=== PATIENT | female | born 1995 ===

== ENCOUNTER 2021-04-17 12:02 | Emergency (ER) | payer OTHER ==
[2021-04-17] MEDS ORDERED: ACETAMINOPHEN 325 MG TAB PO ONE (13:23)
[2021-04-17] MEDS ORDERED: METOCLOPRAMIDE 10 MG/2 ML INJ IV ONE (13:23)
[2021-04-17] MEDS ORDERED: LACTATED RINGERS 1,000 ML IV ONE (13:23)
--- NOTE | 2021-04-17 13:31 | Emergency Department Report ---
ED General Adult HPI - General Chief complaint: Syncope Stated complaint: AND FELL Time Seen by Provider: 04/17/21 13:01 Source: patient, RN notes reviewed Mode of arrival: Ambulatory Limitations: No Limitations - History of Present Illness Initial comments: The patient was evaluated in the emergency department for symptoms described in the history of present illness. He/she was evaluated in the context of the global COVID-19 pandemic, which necessitated consideration that the patient might be at risk for infection with the virus that causes COVID-19. Institutional protocols and algorithms that pertain to the evaluation of patients at risk for COVID-19 are in a state of rapid change based on information released by regulatory bodies including the CDC and federal and state organizations. These policies and algorithms were followed during the patient's care in the emergency department. Please note that these policies, procedures and recommendations changed on a rapid basis. LOTTERY OFFICE MANAGER: [facility]iere LOTTERY OFFICE MANAGER The patient is a 26-year-old female, who is 3, para 2, at approximately 15 to 18 weeks gestation. She had an ultrasound last week which she reports was unremarkable. The patient presents to the ER today with a complaint of sitting down, and then feeling "hot", and "rushed to my ears", earlier on this morning, around 10:00 AM. The patient reports that she has not eaten since 8:00 PM yesterday. After this event, she felt lightheaded, and believes that she lost consciousness. She slid out of a chair, and hit her head. Prior to the event, she denies headache, neck pain, chest pain, abdominal pain, upper back pain. The patient denies travel, surgery, immobilization, leg pain or leg swelling. The patient reports that she has had issues with nausea and vomiting during this , had initially lost weight, and then subsequently gained some weight back. The patient reports a similar episode happening to her 3 years ago. She did not seek medical attention at that time. The patient has a mild heada viola, but reports that she feels like she is back to her baseline The patient does report that since falling, she feels like she cannot feel the moving as much as it typically does. -: Sudden Severity scale (0 -10): 7 Consistency: now resolved Improves with: none Worsens with: none - Related Data Previous Rx's Medication Instructions Recorded Last Taken Type Doxylamine Succinate/Vit B6 1 each PO QHS PRN #30 tablet. 04/17/21 Unknown Rx [Diclegis Dr 10-10 mg Tablet] Melanie Root [Melanie] 250 mg PO QID PRN #30 capsule 04/17/21 Unknown Rx Allergies Allergy/AdvReac Type Severity Reaction Status Date / Time Penicillins Allergy Rash Verified 04/17/21 12:19 ED Review of Systems ROS: Stated complaint: AND FELL Other details as noted in HPI Constitutional: weakness (Generalized weakness). denies: fever Eyes: denies: eye pain, eye discharge, vision change ENT: denies: throat pain, epistaxis Respiratory: denies: cough Cardiovascular: syncope. denies: chest pain, palpitations, dyspnea on exertion, orthopnea Gastrointestinal: nausea, vomiting. denies: hematemesis, melena, hematochezia Genitourinary: denies: dysuria Musculoskeletal: denies: myalgia Neurological: headache. denies: weakness Psychiatric: anxiety ED Past Medical Hx - Medications Home Medications: Home Medications Medication Instructions Recorded Confirmed Last Taken Type Doxylamine Succinate/Vit B6 1 each PO QHS PRN #30 tablet. 04/17/21 Unknown Rx [[place]ie Dr 10-10 mg Tablet] Melanie Root [Melanie] 250 mg PO QID PRN #30 capsule 04/17/21 Unknown Rx ED Physical Exam - General Limitations: No Limitations General appearance: alert, in no apparent distress - Head Head exam: Present: normocephalic, other (There is a left lateral anterior forehead contusion) - Eye Eye exam: Present: normal appearance, PERRL, EOMI, other (Visual acuity intact to finger counting, color perception, reading at a close distance). Absent: nystagmus - ENT ENT exam: Present: normal exam, normal orophraynx, mucous membranes moist, TM's normal bilaterally, normal external ear exam - Neck Neck exam: Present: normal inspection, full ROM. Absent: tenderness, meningismus - Respiratory Respiratory exam: Present: normal lung sounds bilaterally. Absent: respiratory distress, wheezes, rales, rhonchi, stridor, decreased breath sounds - Cardiovascular Cardiovascular Exam: Present: regular rate, normal rhythm, normal heart sounds. Absent: bradycardia, tachycardia, irregular rhythm, systolic murmur, diastolic murmur, rubs, gallop - GI/Abdominal GI/Abdominal exam: Present: soft. Absent: distended, tenderness, guarding, rebound, rigid, pulsatile mass - Extremities Exam Extremities exam: Present: normal inspection, full ROM, other (2+ pulses noted in the bilateral upper and lower extremities. There is no palpable cord. negative Homans sign. Muscular compartments are soft. The pelvis is stable.). Absent: pedal edema, calf tenderness - Back Exam Back exam: Present: normal inspection, full ROM. Absent: tenderness, CVA tenderness (R), CVA tenderness (L), paraspinal tenderness, vertebral tenderness - Neurological Exam Neurological exam: Present: alert, oriented X3, normal gait, other (No facial droop. Tongue midline. Extraocular movements intact bilaterally. Facial sensation intact to light touch in V1, V2, V3 distribution bilaterally. 5 and a 5 strength in 4 extremities. Sensation intact to light touch in 4 extremitie s.). Absent: motor sensory deficit - Psychiatric Psychiatric exam: Present: normal affect, normal mood - Skin Skin exam: Present: warm, dry, intact, normal color. Absent: rash ED Course Vital Signs 04/17/21 04/17/21 12:20 15:38 Temperature 98.1 F Pulse Rate 99 H Respiratory 18 Rate Blood Pressure 112/66 [Right] O2 Sat by Pulse 98 Oximetry O2 Sat by Pulse 99 Oximetry [ Digit-Finger] - Reevaluation(s) Reevaluation #1: 04/17/21 13:41 Differential diagnosis, including not limited to: Closed head injury, concussion, orthostasis, vagal event, electrolyte derangement, nausea and vomiting , hypoglycemia, now resolved, incidental Assessment and plan: 26-year-old female, who was afebrile, with reassuring vital signs, who is not currently tachycardic, tachypneic or hypoxic, who denies DVT and pulmonary embolism risk factors, who I find to be low risk by Wells criteria for pulmonary embolism (appreciate that patient is , but she is not tachycardic, tachypneic or hypoxic, there is no leg pain or leg swelling, and the event today happened while sitting down, after not eating since last night. She did report that symptoms improved after she ate something.) This is most likely orthostasis and vagal event. She has a GCS of 15, and is low risk for intracranial injury as per the [place] syncope rule EKG unremarkable. Check basic laboratory studies, and obstetrics ultrasound. The patient denies urinary symptoms. She is resting comfortably on her chair, a nd in no acute distress. Check orthostatic vital signs, give Tylenol, lactated Ringer's, and Reglan. Reassess after initial data points. Patient is advised to not drive or operate motor vehicles for the next 6 months. 04/17/21 15:38 Patient reassessed multiple times. Laboratory studies unremarkable. Obstetrics ultrasound unremarkable. Patient sitting comfortably in chair, I have reexamined her multiple times, and her examination is unchanged. No additional episodes of loss of consciousness. She remained stable and suitable for discharge with follow-up as an outpatient - Pulse Oximetry Interpretation Digit-Finger Initial Pulse Oximetry Readin O2 Sat by Pulse Oximetry: 99 Actions Taken: none ED Medical Decision Making - Lab Data Result diagrams: 04/17/21 13:35 04/17/21 13:35 Vital Signs 04/17/21 12:20 Temperature 98.1 F Pulse Rate 99 H Respiratory 18 Rate Blood Pressure 112/66 [Right] O2 Sat by Pulse 98 Oximetry Lab Results 04/17/21 04/17/21 04/17/21 Range/Units 13:35 13:35 13:35 WBC 10.4 (4.5-11.0) K/mm3 RBC 4.29 (3.65-5.03) M/mm3 Hgb 12.5 (10.1-14.3) gm/dl Hct 38.3 (30.3-42.9) % MCV 89 (79-97) fl MCH 29 (28-32) pg MCHC 33 (30-34) % RDW 13.7 (13.2-15.2) % Plt Count 207 (140-440) K/mm3 Lymph % (Auto) 15.5 (13.4-35.0) % [place] % (Auto) 4.1 (0.0-7.3) % Eos % (Auto) 0.3 (0.0-4.3) % Baso % (Auto) 0.2 (0.0-1.8) % Lymph # (Auto) 1.6 (1.2-5.4) K/mm3 [place] # (Auto) 0.4 (0.0-0.8) K/mm3 Eos # (Auto) 0.0 (0.0-0.4) K/mm3 Baso # (Auto) 0.0 (0.0-0.1) K/mm3 Seg Neutrophils % 79.9 H (40.0-70.0) % Seg Neutrophils # 8.3 H (1.8-7.7) K/mm3 PT 13.7 (12.2-14.9) Sec. INR 0.95 (0.87-1.13) Sodium 135 L (137-145) mmol/L Potassium 3.9 (3.6-5.0) mmol/L Chloride 101.7 (98-107) mmol/L Carbon Dioxide 23 (22-30) mmol/L Anion Gap 14 mmol/L BUN 8 (7-17) mg/dL Creatinine 0.4 L (0.6-1.2) mg/dL Estimated GFR > 60 ml/min BUN/Creatinine Ratio 20 % Glucose 96 (65-100) mg/dL Calcium 9.7 (8.4-10.2) mg/dL Magnesium 1.90 (1.7-2.3) mg/dL Total Bilirubin 0.30 (0.1-1.2) mg/dL AST 11 (5-40) units/L ALT 10 (7-56) units/L Alkaline Phosphatase 61 (35-129) units/L Total Creatine Kinase 45 (30-135) units/L Troponin T < 0.010 (0.00-0.029) ng/mL Total Protein 7.3 (6.3-8.2) g/dL Albumin 4.0 (3.9-5) g/dL Albumin/Globulin Ratio 1.2 % TSH (0.270-4.200) mlU/mL HCG, Quant (0-4) mIU/mL 04/17/21 04/17/21 Range/Units 13:35 13:35 WBC (4.5-11.0) K/mm3 RBC (3.65-5.03) M/mm3 Hgb (10.1-14.3) gm/dl Hct (30.3-42.9) % MCV (79-97) fl MCH (28-32) pg MCHC (30-34) % RDW (13.2-15.2) % Plt Count (140-440) K/mm3 Lymph % (Auto) (13.4-35.0) % [place] % (Auto) (0.0-7.3) % Eos % (Auto) (0.0-4.3) % Baso % (Auto) (0.0-1.8) % Lymph # (Auto) (1.2-5.4) K/mm3 [place] # (Auto) (0.0-0.8) K/mm3 Eos # (Auto) (0.0-0.4) K/mm3 Baso # (Auto) (0.0-0.1) K/mm3 Seg Neutrophils % (40.0-70.0) % Seg Neutrophils # (1.8-7.7) K/mm3 PT (12.2-14.9) Sec. INR (0.87-1.13) Sodium (137-145) mmol/L Potassium (3.6-5.0) mmol/L Chloride (98-107) mmol/L Carbon Dioxide (22-30) mmol/L Anion Gap mmol/L BUN (7-17) mg/dL Creatinine (0.6-1.2) mg/dL Estimated GFR ml/min BUN/Creatinine Ratio % Glucose (65-100) mg/dL Calcium (8.4-10.2) mg/dL Magnesium (1.7-2.3) mg/dL Total Bilirubin (0.1-1.2) mg/dL AST (5-40) units/L ALT (7-56) units/L Alkaline Phosphatase (35-129) units/L Total Creatine Kinase (30-135) units/L Troponin T (0.00-0.029) ng/mL Total Protein (6.3-8.2) g/dL Albumin (3.9-5) g/dL Albumin/Globulin Ratio % TSH 1.100 (0.270-4.200) mlU/mL HCG, Quant 48868 H (0-4) mIU/mL Vital Signs 04/17/21 04/17/21 12:20 13:43 Temperature 98.1 F Pulse Rate 99 H Respiratory 18 Rate Blood Pressure 112/66 [Right] O2 Sat by Pulse 98 Oximetry O2 Sat by Pulse 99 Oximetry [ Digit-Finger] - EKG Data -: EKG Interpreted by Fl EKG shows normal: sinus rhythm Rate: normal - EKG Data 04/17/21 13:37 The EKG is interpreted at 12: 39 Rate 81 bpm. Normal axis, normal P wave axis, normal intervals. Not a STEMI. - Radiology Data Radiology results: pending, report reviewed, image reviewed US OB >= 14 weeks Fetus INDICATION: s/p fall, cant feel baby. TECHNIQUE: Transabdominal. COMPARISON: None available. FINDINGS: There is a single intrauterine . Biparietal Diameter = 4 cm Head Circumference = 15.2 cm Abdominal Circumference = 12.7 cm Femur Length = 2.6 cm Average Ultrasound Age (AUA) = 18 weeks, 1 day(s). Heart Rate: 152 beats per minute. Estimated Weight in grams (if calculated): 224 Position: cephalic. Cervix: closed. Length in cm (if measured): 5.1 cm Placenta: The placenta is low-lying. No lifting or separation of placenta. Amniotic Fluid Volume: normal IMPRESSION: 1. No acute findings. 2. Low-lying placenta. Further attention on follow-up imaging. Signer Name: Arik Davis MD Signed: 04/17/2021 2:31 PM Workstation Name: [id number] Critical care attestation.: If time is entered above; I have spent that time in minutes in the direct care of this critically ill patient, excluding procedure time. ED Disposition Clinical Impression: History of syncope Closed head injury Qualifiers: Encounter type: initial encounter Qualified Code(s): S09.90XA - Unspecified injury of head, initial encounter Qualifiers: Weeks of gestation: 18 weeks Qualified Code(s): Z3A.18 - 18 weeks gestation of Disposition: 01 HOME / SELF CARE / HOMELESS Is pt being admited?: No Does the pt Need Aspirin: No Condition: Good Additional Instructions: Please advance diet as tolerated. Drink 4 to 6 cups of water per day during the duration of your . Make certain to eat 3-6 meals per day, and recommend that patient not drive or operate motor vehicles for the next 6 months, or until cleared to do so by a primary care doctor or javascript software engineer. Recommend follow-up with the primary care doctor or javascript software engineer for history of syncope/loss of consciousness within the next 5 days. Recommend that patient follow-up with her outpatient supervisor [employer] [facility] within the next week. Please return to the emergency room right away with new pain, worsened pain, migration of pain, projectile vomiting, change in mental status, confusion, inability tolerate liquid feeds, new, worsened or different symptoms not present on the initial emergency room evaluation patient may take the prescribed nausea medications as needed and directed. Patient may take [id number] acetaminophen/Tylenol as needed for physical pain. Patient should not resume heavy duty lifting, or strenuous physical activity or contact sports until cleared to do so by her primary care doctor. Referrals: [facility] [Provider Group] - 3-5 Days [facility] [Provider Group] - 3-5 Days [facility] [Provider Group] - 3-5 Days
[2021-04-17 13:58] LABS: INR 0.95 (0.87-1.13)
[2021-04-17 14:06] LABS: Alanine Aminotransferase 10 units/L (7-56); Blood Urea Nitrogen 8 mg/dL (7-17); Calcium 9.7 mg/dL (8.4-10.2); Hemolysis Index 2
[2021-04-17 14:14] LABS: Basophils % (Auto) 0.2 % (0.0-1.8); Eosinophils % (Auto) 0.3 % (0.0-4.3); Hematocrit 38.3 % (30.3-42.9); Hemoglobin 12.5 gm/dl (10.1-14.3); Lymphocytes # (Auto) 1.6 K/mm3 (1.2-5.4); Lymphocytes % (Auto) 15.5 % (13.4-35.0); Mean Corpuscular HGB Conc 33 % (30-34); Mean Corpuscular Volume 89 fl (79-97); Monocytes # (Auto) 0.4 K/mm3 (0.0-0.8); Monocytes % (Auto) 4.1 % (0.0-7.3); Platelet Count 207 K/mm3 (140-440); Red Blood Count 4.29 M/mm3 (3.65-5.03); Red Cell Distribution Width 13.7 % (13.2-15.2)
[2021-04-17 14:28] LABS: BUN/Creatinine Ratio 20
--- NOTE | 2021-04-17 14:46 | Electrocardiograph Report ---
[facility] Test Date: 2021-04-17 Test Time: 12:39:52 Pat Name: TRUNG HIGGINBOTHAM Department: Room: Gender: F Cardiac/Vascular Sonographer: CLYDE : 1995 Requested By: ZACHARY MARTÍNEZ Order Number: [id number] Reading MD: Marshall Carr Measurements Intervals [place] Rate: 81 P: 48 DE: 142 QRS: 12 QRSD: 76 T: 19 QT: 350 QTc: 406 Interpretive Statements Sinus rhythm No previous ECG available for comparison Electronically Signed On 04-17-2021 14:46:33 EST by Marshall Carr
--- NOTE | 2021-04-17 15:38 | Ultrasound Report ---
US OB >= 14 weeks Fetus INDICATION: s/p fall, cant feel baby. TECHNIQUE: Transabdominal. COMPARISON: None available. FINDINGS: There is a single intrauterine . Biparietal Diameter = 4 cm Head Circumference = 15.2 cm Abdominal Circumference = 12.7 cm Femur Length = 2.6 cm Average Ultrasound Age (AUA) = 18 weeks, 1 day(s). Heart Rate: 152 beats per minute. Estimated Weight in grams (if calculated): 224 Position: cephalic. Cervix: closed. Length in cm (if measured): 5.1 cm Placenta: The placenta is low-lying. No lifting or separation of placenta. Amniotic Fluid Volume: normal IMPRESSION: 1. No acute findings. 2. Low-lying placenta. Further attention on follow-up imaging. Signer Name: Arik Davis MD Signed: 04/17/2021 3:31 PM Workstation Name: [id number]
[2021-04-17 16:07] VITALS: BP 115/64
== END 2021-04-17 16:07 | disposition home or self-care (01) ==
LOC: ED 12:02
DX: O9A.212 Injury, poisoning and certain other consequences of external causes complicating pregnancy, second trimester (principal); S09.90XA Unspecified injury of head, initial encounter; O26.892 Other specified pregnancy related conditions, second trimester; R55 Syncope and collapse; Z3A.18 18 weeks gestation of pregnancy; Z88.0 Allergy status to penicillin; Z79.899 Other long term (current) drug therapy
CPT/HCPCS: 36415; 76805; 80053; 82550; 83735; 84443; 84484; 84702; 85025; 85610; 93005; 93010; 96361; 96374; 99284; J2765; J7120

== ENCOUNTER 2021-06-10 12:12 | Outpatient (CLI) | payer OTHER ==
[2021-06-10 12:45] VITALS: BP 116/66
[2021-06-10] MEDS ORDERED: LACTATED RINGERS 500 ML IV ONE (13:15)
[2021-06-10 14:04] LABS: Bacteria,Urine 1+ /HPF (Negative); Bilirubin,Urine NEG (Negative); Blood,Urine NEG (Negative); Color,Urine Straw (Yellow); Protein,Urine <15 mg/dL mg/dL (Negative); RBC,Urine < 1.0 /HPF (0.0-6.0); Urobilinogen,Urine < 2.0 mg/dL (<2.0)
== END 2021-06-10 14:54 | disposition home or self-care (01) ==
LOC: TRG 12:12 → APU 12:18 → TRG 14:54
PROVIDERS: ATTEND Obstetrics & Gynecology
DX: Z34.92 Encounter for supervision of normal pregnancy, unspecified, second trimester (principal); Z3A.26 26 weeks gestation of pregnancy
CPT/HCPCS: 59025; 81001

== ENCOUNTER 2021-09-19 13:24 | Outpatient (CLI) | payer OTHER ==
[2021-09-19 14:03] VITALS: BP 111/61
--- NOTE | 2021-09-19 15:07 | Ultrasound Report ---
Limited OB ultrasound Biophysical profile INDICATION: Postdates FINDINGS: Single live intrauterine in transverse position. OPAL measures 11.8. heart r ate 149. Biophysical profile 8 out of 8. IMPRESSION: Live intrauterine in transverse maternal left position. Biophysical profile 8 out of 8 Signer Name: Collins Cooper MD Signed: 09/19/2021 3:03 PM Workstation Name: [id number]
== END 2021-09-19 15:28 | disposition home or self-care (01) ==
LOC: TRG 13:24 → APU 13:26 → TRG 15:28
PROVIDERS: ATTEND Obstetrics & Gynecology
DX: Z34.93 Encounter for supervision of normal pregnancy, unspecified, third trimester (principal); Z3A.40 40 weeks gestation of pregnancy
CPT/HCPCS: 59025; 76815; 76819

== ENCOUNTER 2021-09-21 20:30 | Inpatient (IN) | payer OTHER ==
--- NOTE | 2021-09-21 23:12 | Ultrasound Report ---
ULTRASOUND OBSTETRIC LIMITED INDICATION / CLINICAL INFORMATION: presentation. - Clinical Gestational Age (GA) in weeks, days: 41, 0 TECHNIQUE: Transabdominal. COMPARISON: None available. FINDINGS: HEART RATE (beats per minute): 172 PRESENTATION: Cephalic. ADDITIONAL FINDINGS: None. IMPRESSION: 1. Viable intrauterine . 2. Presentation cephalic. Signer Name: Kahlil Cook MD Signed: 09/21/2021 11:08 PM Workstation Name: [id number]
--- NOTE | 2021-09-21 23:29 | History and Physical Report ---
History of Present Illness Date of examination: 09/21/21 Date of admission: 09/21/2021 Chief complaint: Induction of labor History of present illness: Patient is a at 41w0d presenting for induction of labor secondary to postdates. Voices no complaints. +FM. Notes contractions. Denies leakage of fluid or vaginal bleeding. Past History Past Medical History: no pertinent history Past Surgical History: no surgical history Family/Genetic History: none Social history: no significant social history - Obstetrical History Expected Date of Delivery: 09/14/21 Actual Gestation: 41 Week(s) 0 Day(s) : 3 Para: 2 Hx # Term Pregnancies: 2 Number of Pregnancies: 0 Spontaneous Abortions: 0 Induced : 0 Number of Living Children: 2 Medications and Allergies Allergies Allergy/AdvReac Type Severity Reaction Status Date / Time Penicillins Allergy Rash Verified 04/17/21 12:19 Home Medications Medication Instructions Recorded Confirmed Last Taken Type Doxylamine Succinate/Vit B6 1 each PO QHS PRN #30 tablet. 04/17/21 Unknown Rx [Jose De Jesus Oliveira 10-10 mg Tablet] Melanie Root [Melanie] 250 mg PO QID PRN #30 capsule 04/17/21 Unknown Rx Review of Systems All systems: negative - Vital Signs Vital signs: Vital Signs Pulse Pulse Ox 84 99 09/21/21 21:15 09/21/21 21:15 Temp Pulse Resp BP Pulse Ox 70 100 09/21/21 23:21 09/21/21 23:21 - Obstetrical FHR: category 1 FHR comments: 140 baseline Uterine Contraction Monitor Mode: External Cervical Dilatation: 4 Cervical Effacement Percentage: 60 station: -3 Uterine Contraction Frequency (min): infrequent Uterine Contraction Pattern: Irregular Results All other labs normal. Assessment and Plan - Patient Problems (1) Post term at 41 weeks gestation Current Visit: Yes Status: Acute Plan to address problem: U/S notable for cephalic presentation Will admit for IOL Will proceed with pitocin as augmentation agent GBS negative per patient CEFM/[place] Anticipate
[2021-09-21] MEDS ORDERED: LOPERAMIDE 2 MG CAP PO PRN (23:38)
[2021-09-21] MEDS ORDERED: METHYLERGONOVINE MALEATE 0.2 MG/ML VIAL IM PRN (23:38)
[2021-09-21] MEDS ORDERED: LIDOCAINE (2%) 20 MG/1 ML VIAL 20 ML MDV INFILTRATI ONE (23:38)
[2021-09-21] MEDS ORDERED: OXYTOCIN 10 UNIT/1 ML INJ IM PRN (23:38)
[2021-09-21] MEDS ORDERED: BUTORPHANOL 2 MG/1 ML INJ IV PRN (23:38)
[2021-09-21] MEDS ORDERED: fentaNYL 100 MCG/2 ML INJ IV PRN (23:38)
[2021-09-21] MEDS ORDERED: CARBOPROST TROMETHAMINE 250 MCG/1 ML INJ IM PRN (23:38)
[2021-09-21] MEDS ORDERED: ePHEDrine SULFATE 50 MG/1 ML INJ IV PRN (23:38)
[2021-09-21] MEDS ORDERED: ACETAMINOPHEN 325 MG TAB PO PRN (23:38)
[2021-09-21] MEDS ORDERED: MINERAL OIL 30 ML ORAL LIQD PO PRN (23:38)
[2021-09-21] MEDS ORDERED: miSOPROStol 200 MCG TAB PR PRN (23:38)
[2021-09-21] MEDS ORDERED: TERBUTALINE 1 MG/1 ML INJ SUB-Q PRN (23:38)
[2021-09-21] MEDS ORDERED: OXYTOCIN DRIP 30 UNITS/500 ML BAG IV SCH (23:45)
[2021-09-21 23:51] LABS: Hematocrit 37.9 % (30.3-42.9); Hemoglobin 12.5 gm/dl (10.1-14.3); Mean Corpuscular HGB Conc 33 % (30-34); Mean Corpuscular Volume 89 fl (79-97); Platelet Count 181 K/mm3 (140-440); Red Blood Count 4.25 M/mm3 (3.65-5.03); Red Cell Distribution Width 14.7 % (13.2-15.2)
[2021-09-22] MEDS: LACTATED RINGERS 1,000 ML IV SCH ×2 (00:38→04:27)
[2021-09-22] MEDS: OXYTOCIN DRIP 30 UNITS/500 ML BAG IV SCH ×3 (00:39→11:17)
[2021-09-22] MEDS ORDERED: ePHEDrine SULFATE 50 MG/1 ML INJ IV PRN (03:58)
[2021-09-22] MEDS ORDERED: NALOXONE 0.4 MG/1 ML INJ IV PRN (03:58)
[2021-09-22] MEDS ORDERED: fentaNYL-BUPIV 2 MCG/ML-0.125% 200 MCG/100 ML BAG EPIDURAL SCH (03:58)
--- NOTE | 2021-09-22 04:27 | Anesthesia Day of Surgery ---
Anesthesia Day of Surgery - Day of Surgery Patient Examined: Yes Patient H&P Reviewed: Yes Patient is NPO: Yes Beta Blockers: No Cardiac Clearance: No Pulmonary Clearance: No Nikolai's Test: N/A
--- NOTE | 2021-09-22 04:27 | Anesthesia Consultation ---
Anesthesia Consult and Med Hx Date of service: 09/22/21 - Airway Anesthetic Teeth Evaluation: Good ROM Head & Neck: Adequate Mental/Hyoid Distance: Adequate Mallampati Class: Class II Intubation Access Assessment: Probably Good - Pulmonary Exam CTA: Yes - Cardiac Exam Cardiac Exam: RRR - Pre-Operative Health Status ASA Pre-Surgery Classification: ASA2 Proposed Anesthetic Plan: Epidural - Pulmonary Hx Smoking: No Hx Asthma: No Hx Respiratory Symptoms: No SOB: No COPD: No Home Oxygen Therapy: No Hx Pneumonia: No Hx Sleep Apnea: No - Cardiovascular System Hx Hypertension: No Hx Coronary Artery Disease: No Hx Heart Attack/AMI: No Hx Angina: No Hx Percutaneous Transluminal Coronary Angioplasty (PTCA): No Hx Cardia Arrhythmia: No Hx Pacemaker: No Hx Internal Defibrillator: No Hx Valvular Heart Disease: No Hx Heart Murmur: No Hx Peripheral Vascular Disease: No - Central Nervous System Hx Neuromuscular Disorder: No Hx Seizures: No CVA: No Hx Back Pain: No Hx Psychiatric Problems: No - Gastrointestinal Hx Ulcer: No Hx Gastroesophageal Reflux Disease: No - Endocrine Hx Renal Disease: No Hx End Stage Renal Disease: No Hx Cirrhosis: No Hx Liver Disease: No Hx Insulin Dependent Diabetes: No Hx Non-Insulin Dependent Diabetes: No Hx Thyroid Disease: No Hx Hypothyroidism: No Hx Hyperthyroidism: No - Hematic Hx Anemia: No Hx Sickle Cell Disease: No - Other Systems Hx Alcohol Use: No Hx Substance Use: No Hx Cancer: No Hx Obesity: No
--- NOTE | 2021-09-22 04:28 | Progress Note ---
Labor Epidural - Labor Epidural Start Time: 04:05 Stop Time: 04:11 Performed by:: AMOR TANNER Procedure: Epidural Requested for Labor Pain. H&P and PT Chart reviewed and consent obtained. Time out performed and the procedure was explained, all questions answered. Patient was placed in a sitting position with monitors applied. The PTs back was prepped and draped in usual sterile fashion. The Skin was localized with 3 mL of 1% lidocaine at L3-L4. A 17-gauge Touhy epidural needle was advanced to ARTI with saline at 7 cm and no blood/CSF was noted via epidural needle. Epidural catheter was advanced to 12 cm. There was negative aspiration for blood and CSF in the catheter and negative response to a test dose of 3 ml 1.5% lidocaine w/ Epi and a sterile dressing was applied Patient tolerated the procedure well and there were no immediate complications noted.
--- NOTE | 2021-09-22 07:43 | Progress Note ---
Assessment and Plan A: IUP at 41w1d Obesity GBS Negative P: Continue pitocin induction Closely monitor maternal and status Subjective - Subjective Date of service: 09/22/21 Principal diagnosis: IUP at 41 wks, induction of labor, obesity Interval history: Pt comfortable with epidural. Otherwise no complaints. Patient reports: movement normal, no new complaints, no loss of fluid, no vaginal bleeding Objective - Vital Signs Vital Signs: Vital Signs - 12hr 09/21/21 09/21/21 09/21/21 21:15 21:20 21:25 Temperature Pulse Rate 84 77 81 Respiratory Rate Blood Pressure Blood Pressure [Right] O2 Sat by Pulse 99 99 98 Oximetry O2 Sat by Pulse Oximetry [ Bilateral Throughout] 09/21/21 09/21/21 09/21/21 21:30 21:35 21:40 Temperature Pulse Rate 84 81 79 Respiratory Rate Blood Pressure Blood Pressure [Right] O2 Sat by Pulse 98 98 98 Oximetry O2 Sat by Pulse Oximetry [ Bilateral Throughout] 09/21/21 09/21/21 09/21/21 21:45 21:50 21:55 Temperature Pulse Rate 74 76 77 Respiratory Rate Blood Pressure Blood Pressure [Right] O2 Sat by Pulse 98 98 98 Oximetry O2 Sat by Pulse Oximetry [ Bilateral Throughout] 09/21/21 09/21/21 09/21/21 22:00 22:05 22:10 Temperature Pulse Rate 78 77 76 Respiratory Rate Blood Pressure Blood Pressure [Right] O2 Sat by Pulse 97 97 97 Oximetry O2 Sat by Pulse Oximetry [ Bilateral Throughout] 09/21/21 09/21/21 09/21/21 22:15 22:20 22:25 Temperature Pulse Rate 79 75 80 Respiratory Rate Blood Pressure Blood Pressure [Right] O2 Sat by Pulse 97 98 98 Oximetry O2 Sat by Pulse Oximetry [ Bilateral Throughout] 09/21/21 09/21/21 09/21/21 22:30 22:35 22:40 Temperature Pulse Rate 71 77 82 Respiratory Rate Blood Pressure Blood Pressure [Right] O2 Sat by Pulse 98 99 98 Oximetry O2 Sat by Pulse Oximetry [ Bilateral Throughout] 09/21/21 09/21/21 09/21/21 22:43 22:45 22:50 Temperature 97.9 F Pulse Rate 74 80 75 Respiratory Rate Blood Pressure Blood Pressure 122/78 [Right] O2 Sat by Pulse 98 97 99 Oximetry O2 Sat by Pulse Oximetry [ Bilateral Throughout] 09/21/21 09/21/21 09/21/21 22:55 23:00 23:05 Temperature Pulse Rate 76 82 87 Respiratory Rate Blood Pressure Blood Pressure [Right] O2 Sat by Pulse 98 98 97 Oximetry O2 Sat by Pulse Oximetry [ Bilateral Throughout] 09/21/21 09/21/21 09/21/21 23:10 23:21 23:25 Temperature Pulse Rate 86 70 74 Respiratory Rate Blood Pressure 122/70 Blood Pressure [Right] O2 Sat by Pulse 98 100 Oximetry O2 Sat by Pulse Oximetry [ Bilateral Throughout] 09/21/21 09/21/21 09/21/21 23:26 23:27 23:30 Temperature Pulse Rate 63 60 Respiratory Rate Blood Pressure Blood Pressure [Right] O2 Sat by Pulse 94 88 Oximetry O2 Sat by Pulse 98 Oximetry [ Bilateral Throughout] 09/21/21 09/21/21 09/21/21 23:31 23:36 23:41 Temperature Pulse Rate 81 88 74 Respiratory Rate Blood Pressure Blood Pressure [Right] O2 Sat by Pulse 98 98 98 Oximetry O2 Sat by Pulse Oximetry [ Bilateral Throughout] 09/21/21 09/21/21 09/21/21 23:46 23:51 23:56 Temperature Pulse Rate 77 85 77 Respiratory Rate Blood Pressure Blood Pressure [Right] O2 Sat by Pulse 97 98 98 Oximetry O2 Sat by Pulse Oximetry [ Bilateral Throughout] 09/22/21 09/22/21 09/22/21 00:01 00:09 00:14 Temperature Pulse Rate 85 82 72 Respiratory Rate Blood Pressure Blood Pressure [Right] O2 Sat by Pulse 97 97 98 Oximetry O2 Sat by Pulse Oximetry [ Bilateral Throughout] 09/22/21 09/22/21 09/22/21 00:19 00:24 00:29 Temperature Pulse Rate 72 71 85 Respiratory Rate Blood Pressure Blood Pressure [Right] O2 Sat by Pulse 98 100 97 Oximetry O2 Sat by Pulse Oximetry [ Bilateral Throughout] 09/22/21 09/22/21 09/22/21 00:34 00:39 00:44 Temperature Pulse Rate 79 85 93 H Respiratory Rate Blood Pressure Blood Pressure [Right] O2 Sat by Pulse 96 97 96 Oximetry O2 Sat by Pulse Oximetry [ Bilateral Throughout] 09/22/21 09/22/21 09/22/21 00:49 00:54 00:59 Temperature Pulse Rate 78 86 90 Respiratory Rate Blood Pressure Blood Pressure [Right] O2 Sat by Pulse 97 98 97 Oximetry O2 Sat by Pulse Oximetry [ Bilateral Throughout] 09/22/21 09/22/21 09/22/21 01:04 01:09 01:14 Temperature Pulse Rate 85 78 80 Respiratory Rate Blood Pressure Blood Pressure [Right] O2 Sat by Pulse 97 97 97 Oximetry O2 Sat by Pulse Oximetry [ Bilateral Throughout] 09/22/21 09/22/21 09/22/21 01:19 01:24 01:25 Temperature Pulse Rate 85 72 75 Respiratory Rate Blood Pressure 117/60 Blood Pressure [Right] O2 Sat by Pulse 97 96 Oximetry O2 Sat by Pulse Oximetry [ Bilateral Throughout] 09/22/21 09/22/21 09/22/21 01:29 01:34 01:39 Temperature Pulse Rate 85 92 H 86 Respiratory Rate Blood Pressure Blood Pressure [Right] O2 Sat by Pulse 97 97 97 Oximetry O2 Sat by Pulse Oximetry [ Bilateral Throughout] 09/22/21 09/22/21 09/22/21 01:44 01:49 01:54 Temperature Pulse Rate 74 80 83 Respiratory Rate Blood Pressure Blood Pressure [Right] O2 Sat by Pulse 97 97 98 Oximetry O2 Sat by Pulse Oximetry [ Bilateral Throughout] 09/22/21 09/22/21 09/22/21 01:59 02:04 02:09 Temperature Pulse Rate 88 90 82 Respiratory Rate Blood Pressure Blood Pressure [Right] O2 Sat by Pulse 97 98 97 Oximetry O2 Sat by Pulse Oximetry [ Bilateral Throughout] 09/22/21 09/22/21 09/22/21 02:14 02:19 02:23 Temperature Pulse Rate 95 H 71 85 Respiratory Rate Blood Pressure 107/60 Blood Pressure [Right] O2 Sat by Pulse 97 97 Oximetry O2 Sat by Pulse Oximetry [ Bilateral Throughout] 09/22/21 09/22/21 09/22/21 02:24 02:29 02:34 Temperature Pulse Rate 74 82 76 Respiratory Rate Blood Pressure Blood Pressure [Right] O2 Sat by Pulse 97 97 97 Oximetry O2 Sat by Pulse Oximetry [ Bilateral Throughout] 09/22/21 09/22/21 09/22/21 02:39 02:44 02:49 Temperature Pulse Rate 83 86 86 Respiratory Rate Blood Pressure Blood Pressure [Right] O2 Sat by Pulse 97 97 97 Oximetry O2 Sat by Pulse Oximetry [ Bilateral Throughout] 09/22/21 09/22/21 09/22/21 02:54 02:59 03:04 Temperature Pulse Rate 75 85 73 Respiratory Rate Blood Pressure Blood Pressure [Right] O2 Sat by Pulse 97 97 97 Oximetry O2 Sat by Pulse Oximetry [ Bilateral Throughout] 09/22/21 09/22/21 09/22/21 03:09 03:14 03:19 Temperature Pulse Rate 84 88 77 Respiratory Rate Blood Pressure Blood Pressure [Right] O2 Sat by Pulse 97 96 97 Oximetry O2 Sat by Pulse Oximetry [ Bilateral Throughout] 09/22/21 09/22/21 09/22/21 03:22 03:24 03:29 Temperature Pulse Rate 80 90 72 Respiratory Rate Blood Pressure 111/64 Blood Pressure [Right] O2 Sat by Pulse 97 98 Oximetry O2 Sat by Pulse Oximetry [ Bilateral Throughout] 09/22/21 09/22/21 09/22/21 03:34 03:39 03:44 Temperature Pulse Rate 79 74 83 Respiratory Rate Blood Pressure Blood Pressure [Right] O2 Sat by Pulse 98 99 98 Oximetry O2 Sat by Pulse Oximetry [ Bilateral Throughout] 09/22/21 09/22/21 09/22/21 03:49 03:54 03:59 Temperature Pulse Rate 83 69 77 Respiratory Rate Blood Pressure Blood Pressure [Right] O2 Sat by Pulse 99 99 98 Oximetry O2 Sat by Pulse Oximetry [ Bilateral Throughout] 09/22/21 09/22/21 09/22/21 04:04 04:09 04:14 Temperature Pulse Rate 86 90 85 Respiratory Rate Blood Pressure Blood Pressure [Right] O2 Sat by Pulse 99 100 98 Oximetry O2 Sat by Pulse Oximetry [ Bilateral Throughout] 09/22/21 09/22/21 09/22/21 04:15 04:17 04:19 Temperature Pulse Rate 77 72 87 Respiratory Rate Blood Pressure 112/56 111/59 112/61 Blood Pressure [Right] O2 Sat by Pulse 100 Oximetry O2 Sat by Pulse Oximetry [ Bilateral Throughout] 09/22/21 09/22/21 09/22/21 04:21 04:23 04:24 Temperature Pulse Rate 79 86 91 H Respiratory Rate Blood Pressure 115/56 114/56 Blood Pressure [Right] O2 Sat by Pulse 100 Oximetry O2 Sat by Pulse Oximetry [ Bilateral Throughout] 09/22/21 09/22/21 09/22/21 04:25 04:29 04:31 Temperature Pulse Rate 73 76 76 Respiratory Rate Blood Pressure 112/59 122/60 Blood Pressure [Right] O2 Sat by Pulse 100 Oximetry O2 Sat by Pulse Oximetry [ Bilateral Throughout] 09/22/21 09/22/21 09/22/21 04:34 04:37 04:39 Temperature Pulse Rate 110 H 82 75 Respiratory Rate Blood Pressure 112/57 Blood Pressure [Right] O2 Sat by Pulse 100 100 Oximetry O2 Sat by Pulse Oximetry [ Bilateral Throughout] 09/22/21 09/22/21 09/22/21 04:44 04:49 04:54 Temperature Pulse Rate 90 68 76 Respiratory Rate Blood Pressure Blood Pressure [Right] O2 Sat by Pulse 100 100 100 Oximetry O2 Sat by Pulse Oximetry [ Bilateral Throughout] 09/22/21 09/22/21 09/22/21 04:59 05:04 05:08 Temperature Pulse Rate 66 77 65 Respiratory Rate Blood Pressure 113/57 Blood Pressure [Right] O2 Sat by Pulse 99 100 Oximetry O2 Sat by Pulse Oximetry [ Bilateral Throughout] 09/22/21 09/22/21 09/22/21 05:09 05:14 05:19 Temperature Pulse Rate 78 78 71 Respiratory Rate Blood Pressure Blood Pressure [Right] O2 Sat by Pulse 98 99 97 Oximetry O2 Sat by Pulse Oximetry [ Bilateral Throughout] 09/22/21 09/22/21 09/22/21 05:24 05:29 05:34 Temperature Pulse Rate 69 73 66 Respiratory Rate Blood Pressure Blood Pressure [Right] O2 Sat by Pulse 98 99 98 Oximetry O2 Sat by Pulse Oximetry [ Bilateral Throughout] 09/22/21 09/22/21 09/22/21 05:39 05:44 05:49 Temperature Pulse Rate 66 75 68 Respiratory Rate Blood Pressure 109/59 Blood Pressure [Right] O2 Sat by Pulse 98 97 99 Oximetry O2 Sat by Pulse Oximetry [ Bilateral Throughout] 09/22/21 09/22/21 09/22/21 05:54 05:59 06:04 Temperature Pulse Rate 67 74 75 Respiratory Rate Blood Pressure Blood Pressure [Right] O2 Sat by Pulse 98 98 98 Oximetry O2 Sat by Pulse Oximetry [ Bilateral Throughout] 09/22/21 09/22/21 09/22/21 06:07 06:09 06:14 Temperature Pulse Rate 67 76 86 Respiratory Rate Blood Pressure 113/59 Blood Pressure [Right] O2 Sat by Pulse 98 99 Oximetry O2 Sat by Pulse Oximetry [ Bilateral Throughout] 09/22/21 09/22/21 09/22/21 06:19 06:24 06:29 Temperature Pulse Rate 69 65 74 Respiratory Rate Blood Pressure Blood Pressure [Right] O2 Sat by Pulse 98 99 98 Oximetry O2 Sat by Pulse Oximetry [ Bilateral Throughout] 09/22/21 09/22/21 09/22/21 06:34 06:39 06:44 Temperature Pulse Rate 65 81 75 Respiratory Rate Blood Pressure 113/60 Blood Pressure [Right] O2 Sat by Pulse 98 99 99 Oximetry O2 Sat by Pulse Oximetry [ Bilateral Throughout] 09/22/21 09/22/21 09/22/21 06:49 06:54 06:59 Temperature Pulse Rate 65 65 68 Respiratory Rate Blood Pressure Blood Pressure [Right] O2 Sat by Pulse 99 100 99 Oximetry O2 Sat by Pulse Oximetry [ Bilateral Throughout] 09/22/21 09/22/21 09/22/21 07:04 07:09 07:14 Temperature Pulse Rate 76 79 81 Respiratory Rate Blood Pressure 122/67 Blood Pressure [Right] O2 Sat by Pulse 99 100 100 Oximetry O2 Sat by Pulse Oximetry [ Bilateral Throughout] 09/22/21 09/22/21 09/22/21 07:19 07:24 07:25 Temperature 97.8 F Pulse Rate 69 67 Respiratory 18 Rate Blood Pressure Blood Pressure [Right] O2 Sat by Pulse 99 99 100 Oximetry O2 Sat by Pulse 100 Oximetry [ Bilateral Throughout] 09/22/21 09/22/21 07:29 07:34 Temperature Pulse Rate 73 78 Respiratory Rate Blood Pressure Blood Pressure [Right] O2 Sat by Pulse 99 100 Oximetry O2 Sat by Pulse Oximetry [ Bilateral Throughout] - Exam Breasts: deferred Abdomen: Present: soft (obese, gravid ) Uterus: Present: normal FHR: category 2 Uterine Contraction Monitor Mode: External Cervical Dilatation: 5 Cervical Effacement Percentage: 60 station: -3 Uterine Contraction Pattern: Irregular Uterine Tone Measurement Phase: Resting Uterine Contraction Intensity: Moderate Extremities: edema (trace ) - Labs Labs: Abnormal Labs 09/21/21 21:32 WBC 11.3 H Laboratory Results - last 24 hr 09/21/21 09/22/21 21:32 00:12 WBC 11.3 H RBC 4.25 Hgb 12.5 Hct 37.9 MCV 89 MCH 29 MCHC 33 RDW 14.7 Plt Count 181 Blood Type A POSITIVE Antibody Screen Negative - Results US- obstetric: report reviewed
[2021-09-22] MEDS ORDERED: LIDOCAINE (2%) 20 MG/1 ML VIAL 20 ML MDV INFILTRATI NR (10:24)
[2021-09-22] MEDS ORDERED: LACTATED RINGERS 1,000 ML IV SCH (11:00)
--- NOTE | 2021-09-22 13:15 | Procedure Note ---
OB Delivery Note - Delivery Date of Delivery: 09/22/21 (1256) Surgeon: GARETT PITTS (CNM) Estimated blood loss: 300cc - Vaginal Delivery presentation: vertex Delivery position: OA (VONNIE) Intrapartum events: none Delivery induction: oxytocin Delivery augmentation: rupture of membranes (AROM @ 1245) Delivery monitor: external FHT, external uterine Route of delivery: Delivery placenta: spontaneous (1259, mejia) Delivery cord: nuchal cord (x1, delivered through via [place]), 3 umbilical vessels Episiotomy: none Delivery laceration: none Anesthesia: epidural Delivery comments: of viable, crying female infant placed directly to maternal abdomen. Cord double clamped, cut by FOB. Placenta spontaneously delivered, disposed per hospital policy. Uterus firm @ U-2. Perineum intact. Mother and baby safe, stable and left in care of RN. - Infant A at 1 minute: 8 at 5 minutes: 9 Infant Gender: Female (Weight: 3710 gms (8lbs 3 ozs) 19.75 inches)
[2021-09-22] MEDS ORDERED: WITCH HAZEL/ GLYCERIN PAD TP PRN (14:00)
[2021-09-22] MEDS ORDERED: diphenhydrAMINE 25 MG CAP PO PRN (14:00)
[2021-09-22] MEDS ORDERED: LANOLIN/ZINC/DIMETHICONE (LANSINOH) 7 GM TP PRN (14:00)
[2021-09-22] MEDS ORDERED: oxyCODONE /ACETAMINOPHEN 5-325MG TAB PO PRN (14:00)
[2021-09-22] MEDS ORDERED: PROMETHAZINE 25 MG TAB PO PRN (14:00)
[2021-09-22] MEDS ORDERED: ONDANSETRON 4 MG/2 ML INJ IV PRN (14:00)
[2021-09-22] MEDS: IBUPROFEN 800 MG TAB PO SCH (18:13)
[2021-09-22] MEDS ORDERED: MAGNESIUM HYDROXIDE (MOM) ORAL LIQD UDC PO PRN (22:00)
[2021-09-23] MEDS: IBUPROFEN 800 MG TAB PO SCH ×2 (01:53→10:17)
[2021-09-23 06:15] LABS: Hematocrit 34.9 % (30.3-42.9); Hemoglobin 11.6 gm/dl (10.1-14.3)
--- NOTE | 2021-09-23 07:51 | Discharge Summary ---
Providers - Providers Date of Admission: 09/21/21 23:38 Date of discharge: 09/23/21 Attending physician: DEMETRIUS DOAN 09/22/21 13:10 Consult to [employer] Worker [CONS] Routine Reason For Exam: assistance with , SNS Primary care physician: DEMETRIUS DOAN Hospitalization Reason for admission: induction of labor Delivery: Episiotomy: none Laceration: none Other procedures: none complications: none Discharge diagnosis: IUP at term delivered baby: female Hospital course: Patient is a at 41w0d presenting for induction of labor secondary to postdates. Voices no complaints. +FM. Notes contractions. Denies leakage of fluid or vaginal bleeding. Delivered viable female via . Met criteria for discharge on PPD#1. Condition at discharge: Good Disposition: 01 HOME / SELF CARE / HOMELESS - Discharge Diagnoses (1) Status post normal vaginal delivery Status: Acute Plan - Discharge Medications Prescriptions: Ibuprofen [Motrin 800 MG tab] 800 mg PO Q8HR #30 tablet - Provider Discharge Summary Activity: routine, no sex for 6 weeks, no heavy lifting 4 weeks, no strenuous exercise Diet: routine Instructions: routine Additional instructions: [] Smoking cessation referral if applicable(refer to patient education folder for contact #) [] Refer to [facility] Booklet Call your doctor immediately for: * Fever > 100.5 * Heavy vaginal bleeding ( >1 pad per hour) * Severe persistent headache * Shortness of breath * Reddened, hot, painful area to leg or breast - Follow up plan Follow up: DEMETRIUS DOAN MD [Primary Care Provider] - 6 Weeks
[2021-09-23] MEDS ORDERED: PRENATAL VIT27-FE FUMARATE-FOLIC ACID VIT TAB PO SCH (10:00)
[2021-09-23 15:49] VITALS: BP 122/63
== END 2021-09-23 16:25 | disposition home or self-care (01) | DRG 775 ==
LOC: TRG 20:30 → LD 20:33 → TRG 23:38 → LD 23:38 → OB 09-22 14:52
PROVIDERS: ADMIT Obstetrics & Gynecology; ATTEND Obstetrics & Gynecology
PROC: 10E0XZZ Delivery of Products of Conception, External Approach (ICD-10-PCS; principal; 2021-09-22)
PROC: 10907ZC Drainage of Amniotic Fluid, Therapeutic from Products of Conception, Via Natural or Artificial Opening (ICD-10-PCS; 2021-09-22)
PROC: 3E033VJ Introduction of Other Hormone into Peripheral Vein, Percutaneous Approach (ICD-10-PCS; 2021-09-22)
PROC: 3E0R3BZ Introduction of Anesthetic Agent into Spinal Canal, Percutaneous Approach (ICD-10-PCS; 2021-09-22)
PROC: 00HU33Z Insertion of Infusion Device into Spinal Canal, Percutaneous Approach (ICD-10-PCS; 2021-09-22)
DX: O48.0 Post-term pregnancy (principal); Z37.0 Single live birth; Z3A.41 41 weeks gestation of pregnancy; Z20.822 Contact with and (suspected) exposure to COVID-19; O99.214 Obesity complicating childbirth; O69.81X0 Labor and delivery complicated by cord around neck, without compression, not applicable or unspecified
CPT/HCPCS: 36415; 59025; 76815; 76819; 85014; 85018; 85027; 86850; 86900; 86901; G0378; J3490; J2590; J7120; U0003